=== PATIENT | female | born 1980 | race Caucasian/White ===

== ENCOUNTER → 2016-05-09 | Outpatient (CLI) | payer MEDICARE, MEDICAID ==
[~2016-05-09] MED LIST: ADIPEX-P37.5 MG PO; AMANTADINE HCL100 M1 PO; AMBIEN 10MG10 MG PO; GEODON 20 MG20 MG PO; GEODON 40MG40 MG PO; GEODON60 MG PO; KLONOPIN 0.5MG0.5 MG PO; LEXAPRO 10MG10 MG PO; MACROBID 1100 MG/CAP PO; WELLBUTRIN XL150 MG PO; ZOFRAN 4MG T4 MG/TAB PO; ZOLOFT 50MG50 MG PO; ZYPREXA10 MG PO
== END ==
LOC: BHSO 13:40
DX: F25.0 Schizoaffective disorder, bipolar type (principal)

== ENCOUNTER → 2016-05-30 | Outpatient (CLI) | payer MEDICARE, MEDICAID | LOC: BHSO 13:41 | DX: F20.89 Other schizophrenia (principal) ==

== ENCOUNTER → 2016-07-04 | Outpatient (CLI) | payer MEDICARE, MEDICAID | LOC: BHSO 13:53 | DX: F25.0 Schizoaffective disorder, bipolar type (principal) ==

== ENCOUNTER → 2016-08-01 | Outpatient (CLI) | payer MEDICARE, MEDICAID | LOC: BHSO 11:15 | DX: F25.0 Schizoaffective disorder, bipolar type (principal) ==

== ENCOUNTER → 2016-09-12 | Outpatient (CLI) | payer MEDICARE, MEDICAID | LOC: BHSO 14:40 | DX: F25.0 Schizoaffective disorder, bipolar type (principal) ==

== ENCOUNTER → 2016-10-03 | Outpatient (CLI) | payer MEDICARE, MEDICAID | LOC: BHSO 14:41 | DX: F25.0 Schizoaffective disorder, bipolar type (principal) ==

== ENCOUNTER → 2016-10-21 | Outpatient (CLI) | payer MEDICARE, MEDICAID | LOC: BHSO 13:50 | DX: F25.0 Schizoaffective disorder, bipolar type (principal) ==

== ENCOUNTER → 2016-11-15 | Outpatient (CLI) | payer MEDICARE, MEDICAID | LOC: BHSO 14:38 | DX: F25.0 Schizoaffective disorder, bipolar type (principal) ==

== ENCOUNTER → 2016-12-16 | Outpatient (CLI) | payer MEDICARE, MEDICAID | LOC: BHSO 13:42 | DX: F25.0 Schizoaffective disorder, bipolar type (principal) ==

== ENCOUNTER → 2017-01-18 | Outpatient (CLI) | payer MEDICARE, MEDICAID | LOC: BHSO 14:51 | DX: F25.0 Schizoaffective disorder, bipolar type (principal) ==

== ENCOUNTER → 2017-02-17 | Outpatient (CLI) | payer MEDICARE, MEDICAID | LOC: BHSO 14:50 | DX: F25.0 Schizoaffective disorder, bipolar type (principal) ==

== ENCOUNTER → 2017-03-24 | Outpatient (CLI) | payer MEDICARE, MEDICAID | LOC: BHSO 15:02 | DX: F25.0 Schizoaffective disorder, bipolar type (principal) ==

== ENCOUNTER → 2017-05-19 | Outpatient (CLI) | payer MEDICARE, MEDICAID | LOC: BHSO 15:08 | DX: F25.0 Schizoaffective disorder, bipolar type (principal) | CPT/HCPCS: G0463 ==

== ENCOUNTER → 2017-06-23 | Outpatient (CLI) | payer MEDICARE, MEDICAID | LOC: BHSO 09:46 | DX: F25.0 Schizoaffective disorder, bipolar type (principal) | CPT/HCPCS: G0463 ==

== ENCOUNTER → 2017-08-04 | Outpatient (CLI) | payer MEDICARE, MEDICAID | LOC: BHSO 08:40 | DX: F25.0 Schizoaffective disorder, bipolar type (principal) | CPT/HCPCS: G0463 ==

== ENCOUNTER → 2017-09-19 | Outpatient (CLI) | payer MEDICARE, MEDICAID | LOC: BHSO 15:47 | DX: F25.0 Schizoaffective disorder, bipolar type (principal) | CPT/HCPCS: G0463 ==

== ENCOUNTER → 2017-10-26 | Outpatient (CLI) | payer MEDICARE, MEDICAID | LOC: BHSO 15:11 | DX: F25.0 Schizoaffective disorder, bipolar type (principal) | CPT/HCPCS: G0463 ==

== ENCOUNTER → 2017-11-27 | Outpatient (CLI) | payer MEDICARE, MEDICAID | LOC: BHSO 14:31 | DX: F25.0 Schizoaffective disorder, bipolar type (principal) | CPT/HCPCS: G0463 ==

== ENCOUNTER → 2018-01-25 | Outpatient (CLI) | payer MEDICARE, MEDICAID | LOC: BHSO 15:32 | DX: F25.0 Schizoaffective disorder, bipolar type (principal) | CPT/HCPCS: G0463 ==

== ENCOUNTER → 2018-04-12 | Outpatient (CLI) | payer MEDICARE, MEDICAID | LOC: BHSO 14:29 | DX: F25.0 Schizoaffective disorder, bipolar type (principal) | CPT/HCPCS: G0463 ==

== ENCOUNTER → 2018-05-28 | Outpatient (CLI) | payer MEDICARE, MEDICAID | LOC: BHSO 13:14 | DX: F25.0 Schizoaffective disorder, bipolar type (principal) | CPT/HCPCS: G0463 ==

== ENCOUNTER → 2018-07-09 | Outpatient (CLI) | payer MEDICARE, MEDICAID | LOC: BHSO 13:48 | DX: F25.0 Schizoaffective disorder, bipolar type (principal) | CPT/HCPCS: G0463 ==

== ENCOUNTER 2018-07-25 22:32 | Emergency (ER) | payer MEDICARE, MEDICAID ==
[~2018-07-25] VITALS: Ht 165.1 cm; Wt 95.5 kg
[2018-07-25 22:40] VITALS: TEMP 97.4
[2018-07-25 23:32] LABS: BASO % 0.2 % (0.0-2.0); EOS % 0.2 % (0-4.0); GRAN # 9.4 (1.4-6.5); GRAN % 74.1 % (42.2-75.2); HEMATOCRIT 40.6 % (37.0-47.0); HEMOGLOBIN 13.4 g/dl (12.5-16.0); LYMPH # 2.6 (1.2-3.4); LYMPH % 20.4 % (20.0-51.0); MEAN CELL VOLUME 89 fl (80.0-100.0); MEAN CORPUSCULAR HEMOGLOBIN 30 pg (27.0-31.0); MEAN CORPUSCULAR HGB CONC 33 g/dl (33.0-37.0); MEAN PLATELET VOLUME 9.6 fl (7.4-10.4); MONO # 0.6 (0.1-0.6); MONO % 4.9 % (1.7-9.3); PLATELET COUNT 341 K/mm3 (130-400); RED BLOOD COUNT 4.55 M/mm3 (4.10-5.30); REDCELL DISTRIBUTION WIDTH-CV 13.4 % (11.5-14.5)
[2018-07-25 23:44] LABS: ALANINE AMINOTRANSFERASE 33 U/L (9-52); ALBUMIN 4.5 gm/dL (3.5-5.0); ALKALINE PHOSPHATASE 76 U/L (50-136); ANION GAP 13 mmol/L (7-16); AST,SGOT 32 U/L (15-37); BILIRUBIN,TOTAL 0.8 mg/dL (0.0-1.0); BLOOD UREA NITROGEN 12 mg/dL (7-17); CALCIUM 9.5 mg/dL (8.4-10.2); CARBON DIOXIDE 23 mmol/L (22-30); CHLORIDE 104 mmol/L (98-107); CREATININE, serum 0.94 (0.52-1.25); GLUCOSE 144 mg/dL (74-106); POTASSIUM 3.5 mmol/L (3.4-5.0); SODIUM 139 mmol/L (137-145); TOTAL PROTEIN 7.7 gm/dL (6.4-8.2)
[2018-07-25 23:48] LABS: ACETAMINOPHEN < 10 ug/mL (10-30); ALCOHOL(ethanol),MEDICAL < 10 mg/dL; SALICYLATE < 1.0 mg/dL
[2018-07-26 00:57] LABS: COLLECTION METHOD CLEAN CATCH
[2018-07-26 01:02] LABS: MUCOUS Present /lpf; PH 5 (5-8); URINE APPEARANCE Hazy; URINE BACTERIA None Seen /hpf; URINE BILIRUBIN Negative (NEGATIVE); URINE BLOOD Negative (NEGATIVE); URINE CALCIUM OXALATE CRYSTAL Present /hpf; URINE COLOR Yellow; URINE GLUCOSE Negative (NEGATIVE); URINE KETONE Trace (NEGATIVE); URINE LEUKOCYTE ESTERASE Trace (NEGATIVE); URINE NITRATE Negative (NEGATIVE); URINE PROTEIN(semi-quant) Negative (NEGATIVE)
[2018-07-26 01:11] LABS: TRICYCLIC ANTIDEPRESS URINE NEGATIVE
[2018-07-26] MEDS ORDERED: FLEXERIL 1010 MG/TAB PO (02:28)
[2018-07-26] MEDS ORDERED: AMBIEN 5MG TABLE5 MG PO (04:55)
[2018-07-26] MEDS ORDERED: MINIPRESS2 MG PO (04:56)
[2018-07-26] MEDS ORDERED: PROZAC 10MG10 MG PO (04:59)
[2018-07-26] MEDS ORDERED: GEODON80 MG PO (05:00)
[2018-07-26] MEDS ORDERED: KLONOPIN 0.5MG0.5 MG PO (05:00)
[2018-07-26 11:00] VITALS: BP 130/74; PULSE 96
== END 2018-07-26 11:35 ==
LOC: COL.ER 22:32
PROVIDERS: Emergency Medicine
DX: F20.2 Catatonic schizophrenia (principal); F17.210 Nicotine dependence, cigarettes, uncomplicated

== ENCOUNTER → 2018-08-28 | Outpatient (CLI) | payer MEDICARE, MEDICAID ==
[~2018-08-28] MED LIST changes: +AMBIEN 5MG TABLE5 MG PO; +FLEXERIL 1010 MG/TAB PO; +GEODON80 MG PO; +MINIPRESS2 MG PO; +PROZAC 10MG10 MG PO
== END ==
LOC: BHSO 14:04
DX: F25.0 Schizoaffective disorder, bipolar type (principal)
CPT/HCPCS: G0463

== ENCOUNTER → 2018-09-14 | Outpatient (CLI) | payer MEDICARE, MEDICAID | LOC: BHSO 15:01 | DX: F25.0 Schizoaffective disorder, bipolar type (principal) ==

== ENCOUNTER → 2018-09-27 | Outpatient (CLI) | payer MEDICARE, MEDICAID | LOC: BHSO 14:57 | DX: F25.0 Schizoaffective disorder, bipolar type (principal) | CPT/HCPCS: G0463 ==

== ENCOUNTER → 2018-10-12 | Outpatient (CLI) | payer MEDICARE, MEDICAID | LOC: BHSO 14:52 | DX: F25.0 Schizoaffective disorder, bipolar type (principal) ==

== ENCOUNTER → 2018-11-09 | Outpatient (CLI) | payer MEDICARE, MEDICAID | LOC: BHSO 14:53 | DX: F25.0 Schizoaffective disorder, bipolar type (principal) ==

== ENCOUNTER → 2018-12-07 | Outpatient (CLI) | payer MEDICARE, MEDICAID | LOC: BHSO 14:56 | DX: F25.0 Schizoaffective disorder, bipolar type (principal) ==

== ENCOUNTER → 2019-01-04 | Outpatient (CLI) | payer MEDICARE, MEDICAID | LOC: BHSO 14:52 | DX: F25.0 Schizoaffective disorder, bipolar type (principal) ==

== ENCOUNTER → 2019-01-15 | Outpatient (CLI) | payer MEDICARE, MEDICAID | LOC: BHSO 15:08 | DX: F25.0 Schizoaffective disorder, bipolar type (principal) | CPT/HCPCS: G0463 ==

== ENCOUNTER → 2019-02-01 | Outpatient (CLI) | payer MEDICARE, MEDICAID | LOC: BHSO 14:54 | DX: F25.0 Schizoaffective disorder, bipolar type (principal) ==

== ENCOUNTER → 2019-03-01 | Outpatient (CLI) | payer MEDICARE, MEDICAID | LOC: BHSO 14:50 | DX: F25.0 Schizoaffective disorder, bipolar type (principal) ==

== ENCOUNTER → 2019-03-14 | Outpatient (CLI) | payer MEDICARE, MEDICAID | LOC: BHSO 14:59 | DX: F25.0 Schizoaffective disorder, bipolar type (principal) | CPT/HCPCS: G0463 ==

== ENCOUNTER → 2019-03-29 | Outpatient (CLI) | payer MEDICARE, MEDICAID | LOC: BHSO 14:52 | DX: F25.0 Schizoaffective disorder, bipolar type (principal) ==

== ENCOUNTER → 2019-04-26 | Outpatient (CLI) | payer MEDICARE, MEDICAID | LOC: BHSO 14:48 | DX: F25.0 Schizoaffective disorder, bipolar type (principal) ==

== ENCOUNTER → 2019-05-15 | Outpatient (CLI) | payer MEDICARE, MEDICAID | LOC: BHSO 14:04 | DX: F25.0 Schizoaffective disorder, bipolar type (principal) | CPT/HCPCS: G0463 ==

== ENCOUNTER → 2019-05-24 | Outpatient (CLI) | payer MEDICARE, MEDICAID | LOC: BHSO 14:43 | DX: F25.0 Schizoaffective disorder, bipolar type (principal) ==

== ENCOUNTER → 2019-06-21 | Outpatient (CLI) | payer MEDICARE, MEDICAID | LOC: BHSO 14:54 | DX: F25.0 Schizoaffective disorder, bipolar type (principal) ==

== ENCOUNTER → 2019-08-16 | Outpatient (CLI) | payer MEDICARE, MEDICAID | LOC: BHSO 14:57 | DX: F25.8 Other schizoaffective disorders (principal) ==

== ENCOUNTER → 2019-09-13 | Outpatient (CLI) | payer MEDICARE, MEDICAID | LOC: BHSO 14:50 | DX: F41.1 Generalized anxiety disorder (principal) ==

== ENCOUNTER → 2019-10-11 | Outpatient (CLI) | payer MEDICARE, MEDICAID | LOC: BHSO 14:50 | DX: F25.0 Schizoaffective disorder, bipolar type (principal) ==

== ENCOUNTER → 2019-11-19 | Outpatient (CLI) | payer MEDICARE, MEDICAID | LOC: BHSO 15:28 | DX: F25.8 Other schizoaffective disorders (principal) | CPT/HCPCS: G0463 ==

== ENCOUNTER → 2019-12-06 | Outpatient (CLI) | payer MEDICARE, MEDICAID | LOC: BHSO 14:52 | DX: F25.8 Other schizoaffective disorders (principal) ==

== ENCOUNTER → 2020-01-03 | Outpatient (CLI) | payer MEDICARE, MEDICAID | LOC: BHSO 14:47 | DX: F25.0 Schizoaffective disorder, bipolar type (principal) ==

== ENCOUNTER → 2020-01-31 | Outpatient (CLI) | payer MEDICARE, MEDICAID | LOC: BHSO 15:00 | DX: F25.0 Schizoaffective disorder, bipolar type (principal) ==

== ENCOUNTER → 2020-02-28 | Outpatient (CLI) | payer MEDICARE, MEDICAID | LOC: BHSO 11:14 | DX: F25.8 Other schizoaffective disorders (principal) | CPT/HCPCS: G0463 ==

== ENCOUNTER 2021-01-17 09:56 | Emergency (ER) | payer MEDICARE, MEDICAID ==
[~2021-01-17] VITALS: Ht 167.6 cm; Wt 68.2 kg
[2021-01-17 10:06] VITALS: TEMP 98.7
[2021-01-17 11:38] LABS: BASO # 0.1 (0.0-0.2); BASO % 0.3 % (0.0-2.0); EOS # 0.1 (0.0-0.7); EOS % 0.3 % (0-4.0); GRAN # 10.1 (1.4-6.5); GRAN % 68.2 % (42.2-75.2); HEMATOCRIT 40.7 % (37.0-47.0); HEMOGLOBIN 13.4 g/dl (12.5-16.0); LYMPH # 3.7 (1.2-3.4); MEAN CELL VOLUME 90 fl (80.0-100.0); MEAN CORPUSCULAR HEMOGLOBIN 30 pg (27.0-31.0); MEAN CORPUSCULAR HGB CONC 33 g/dl (33.0-37.0); MEAN PLATELET VOLUME 10.2 fl (7.4-10.4); MONO # 0.9 (0.1-0.6); MONO % 5.9 % (1.7-9.3); PLATELET COUNT 340 K/mm3 (130-400); RED BLOOD COUNT 4.51 M/mm3 (4.10-5.30); REDCELL DISTRIBUTION WIDTH-CV 13.2 % (11.5-14.5)
[2021-01-17 12:04] LABS: ALANINE AMINOTRANSFERASE 25 U/L (0-55); ALBUMIN 4.5 gm/dL (3.5-5.0); ALKALINE PHOSPHATASE 69 U/L (0-750); ANION GAP 13 mmol/L; AST,SGOT 29 U/L (5-34); BILIRUBIN,TOTAL 1.1 mg/dL (0.2-1.2); BLOOD UREA NITROGEN 12 mg/dL (7-19); CALCIUM 9.5 mg/dL (8.4-10.2); CARBON DIOXIDE 21 mEq/L (22-29); CHLORIDE 106 mmol/L (98-107); CREATININE, serum 1.19 mg/dL (0.57-1.11); GLUCOSE 112 mg/dL (70-99); POTASSIUM 3.5 mmol/L (3.5-4.5); SODIUM 140 mmol/L (136-145); TOTAL PROTEIN 7.8 gm/dL (6.2-8.1)
[2021-01-17 12:05] LABS: ACETAMINOPHEN < 1.0 ug/mL (10-30); ALCOHOL(ethanol),MEDICAL < 10 mg/dL (0-10); SALICYLATE < 5.0 mg/dL (15.0-30.0)
[2021-01-17 12:07] LABS: COLLECTION METHOD CLEAN CATCH
[2021-01-17 12:22] LABS: MUCOUS Present /lpf; PH 5 (5-8); SQUAMOUS EPITHELIAL 0-2 /hpf; URINE APPEARANCE Cloudy; URINE BACTERIA None Seen /hpf; URINE BILIRUBIN Negative (NEGATIVE); URINE BLOOD Negative (NEGATIVE); URINE COLOR Yellow; URINE GLUCOSE Negative (NEGATIVE); URINE KETONE Trace (NEGATIVE); URINE LEUKOCYTE ESTERASE Trace (NEGATIVE); URINE NITRATE Negative (NEGATIVE); URINE PROTEIN(semi-quant) Negative (NEGATIVE); URINE UROBILINOGEN Negative (NEGATIVE)
[2021-01-17 12:26] LABS: TSH w REFLEX 1.233 uIU/mL (0.350-4.940)
[2021-01-17 12:28] LABS: TRICYCLIC ANTIDEPRESS URINE NEGATIVE
[2021-01-18 08:13] VITALS: BP 120/57
[2021-01-18 09:40] VITALS: PULSE 99
== END 2021-01-18 09:40 ==
LOC: COL.ER 09:56
PROVIDERS: Nurse Practitioner
DX: F20.9 Schizophrenia, unspecified (principal); F31.9 Bipolar disorder, unspecified; F41.9 Anxiety disorder, unspecified; F43.10 Post-traumatic stress disorder, unspecified; Z79.899 Other long term (current) drug therapy; Z20.822 Contact with and (suspected) exposure to COVID-19

== ENCOUNTER 2021-03-11 17:20 | Emergency (ER) | payer MEDICARE, MEDICAID ==
[~2021-03-11] VITALS: Ht 167.6 cm; Wt 81.8 kg
[2021-03-11 18:06] LABS: COLLECTION METHOD CLEAN CATCH
[2021-03-11 18:18] LABS: BUDDING YEAST Present (NOT PRESENT); MUCOUS Present (NOT PRESENT); PH 5 (5-8); URINE APPEARANCE Turbid (CLEAR/HAZY); URINE BACTERIA Rare (NONE SEEN); URINE BILIRUBIN Positive (NEGATIVE); URINE BLOOD 1+ (NEGATIVE); URINE COLOR Yellow (YELLOW); URINE GLUCOSE Negative (NEGATIVE); URINE KETONE Trace (NEGATIVE); URINE LEUKOCYTE ESTERASE Negative (NEGATIVE); URINE NITRATE Negative (NEGATIVE); URINE PROTEIN(semi-quant) 2+ (NEGATIVE)
[2021-03-11 18:25] LABS: TRICYCLIC ANTIDEPRESS URINE NEGATIVE
[2021-03-11 18:26] LABS: BASO % 0.2 % (0.0-2.0); EOS % 0.2 % (0-4.0); GRAN # 9.7 K/mm3 (1.4-6.5); GRAN % 70.8 % (42.2-75.2); HEMATOCRIT 42.4 % (37.0-47.0); HEMOGLOBIN 14.2 g/dl (12.5-16.0); LYMPH # 3.2 K/mm3 (1.2-3.4); LYMPH % 23.7 % (20.0-51.0); MEAN CELL VOLUME 91 fl (80.0-100.0); MEAN CORPUSCULAR HEMOGLOBIN 30 pg (27.0-31.0); MEAN CORPUSCULAR HGB CONC 34 g/dl (33.0-37.0); MEAN PLATELET VOLUME 10.5 fl (7.4-10.4); MONO # 0.7 K/mm3 (0.1-0.6); PLATELET COUNT 327 K/mm3 (130-400); RED BLOOD COUNT 4.67 M/mm3 (4.10-5.30); REDCELL DISTRIBUTION WIDTH-CV 13.1 % (11.5-14.5)
[2021-03-11 18:41] LABS: ALANINE AMINOTRANSFERASE 22 U/L (0-55); ALBUMIN 4.6 gm/dL (3.5-5.0); ALKALINE PHOSPHATASE 60 U/L (40-150); ANION GAP 13 mmol/L (7-16); AST,SGOT 22 U/L (5-34); BLOOD UREA NITROGEN 16 mg/dL (7-19); CALCIUM 9.9 mg/dL (8.4-10.2); CARBON DIOXIDE 19 mmol/L (22-29); CHLORIDE 111 mmol/L (98-107); CREATININE, serum 1.03 mg/dL (0.57-1.11); GLUCOSE 109 mg/dL (70-99); POTASSIUM 4.1 mmol/L (3.5-4.5); SODIUM 143 mmol/L (136-145)
[2021-03-11 18:48] LABS: ACETAMINOPHEN < 1.0 ug/mL (10-30); ALCOHOL(ethanol),MEDICAL < 10 mg/dL (0-10); SALICYLATE < 5.0 mg/dL (15.0-30.0)
[2021-03-14 12:30] VITALS: BP 120/61; PULSE 80; TEMP 98.2
== END 2021-03-14 12:35 ==
LOC: COL.ER 17:20
PROVIDERS: Physician Assistant
DX: F20.9 Schizophrenia, unspecified (principal); D72.829 Elevated white blood cell count, unspecified; R94.4 Abnormal results of kidney function studies; F32.A Depression, unspecified; Z20.822 Contact with and (suspected) exposure to COVID-19; Z88.8 Allergy status to other drugs, medicaments and biological substances; Z79.899 Other long term (current) drug therapy
CPT/HCPCS: J1200; J1630; J3486; J7030

== ENCOUNTER 2022-06-17 13:44 | Emergency (ER) | payer MEDICARE, MEDICAID ==
[~2022-06-17] VITALS: Ht 167.6 cm; Wt 95.5 kg
[2022-06-17 14:50] LABS: BASO % 0.3 % (0.0-2.0); EOS # 0.1 K/mm3 (0.0-0.7); EOS % 0.7 % (0.0-4.0); GRAN # 8.5 K/mm3 (1.4-6.5); GRAN % 63.6 % (42.2-75.2); HEMATOCRIT 40.6 % (37.0-47.0); HEMOGLOBIN 13.6 g/dl (12.5-16.0); LYMPH # 3.9 K/mm3 (1.2-3.4); LYMPH % 29.1 % (20.0-51.0); MEAN CELL VOLUME 89 fl (80.0-100.0); MEAN CORPUSCULAR HEMOGLOBIN 30 pg (27-31); MEAN CORPUSCULAR HGB CONC 34 g/dl (33.0-37.0); MEAN PLATELET VOLUME 9.6 fl (7.4-10.4); MONO # 0.8 K/mm3 (0.1-0.6); PLATELET COUNT 315 K/mm3 (130-400); RED BLOOD COUNT 4.59 M/mm3 (4.10-5.30); REDCELL DISTRIBUTION WIDTH-CV 13.2 % (11.5-14.5)
[2022-06-17 15:07] LABS: ALANINE AMINOTRANSFERASE 30 U/L (0-55); ALBUMIN 4.3 gm/dL (3.5-5.0); ALKALINE PHOSPHATASE 66 U/L (40-150); ANION GAP 13 mmol/L (7-16); AST,SGOT 22 U/L (5-34); BILIRUBIN,TOTAL 0.7 mg/dL (0.2-1.2); BLOOD UREA NITROGEN 17 mg/dL (7-19); CALCIUM 9.6 mg/dL (8.4-10.2); CARBON DIOXIDE 21 mmol/L (22-29); CHLORIDE 110 mmol/L (98-107); CREATININE, serum 1.01 mg/dL (0.57-1.11); GLUCOSE 113 mg/dL (70-99); POTASSIUM 3.4 mmol/L (3.5-4.5); SODIUM 144 mmol/L (136-145); TOTAL PROTEIN 7.5 gm/dL (6.2-8.1)
[2022-06-17 15:12] LABS: ACETAMINOPHEN < 1.0 ug/mL (10-30); ALCOHOL(ethanol),MEDICAL < 10 mg/dL (0-10); SALICYLATE < 5.0 mg/dL (15.0-30.0)
[2022-06-17 15:26] LABS: TSH w REFLEX 1.323 uIU/mL (0.350-4.940)
[2022-06-17 17:50] LABS: COLLECTION METHOD CLEAN CATCH
[2022-06-17 18:00] LABS: MUCOUS Present (NOT PRESENT); URINE APPEARANCE Cloudy (CLEAR/HAZY); URINE BACTERIA None Seen /hpf (NONE SEEN); URINE COLOR Yellow (YELLOW); URINE GLUCOSE Negative (NEGATIVE); URINE KETONE 2+ (NEGATIVE); URINE PROTEIN(semi-quant) TRACE (NEGATIVE)
[2022-06-17 18:01] LABS: URINE BLOOD TRACE-INTACT (NEGATIVE); URINE NITRATE Negative (NEGATIVE); URINE UROBILINOGEN 0.2 (NEGATIVE)
[2022-06-17] MEDS ORDERED: TOPAMAX50 MG PO (18:04)
[2022-06-17] MEDS ORDERED: ATARAX 25MG25 MG/TAB PO (18:06)
[2022-06-17] MEDS ORDERED: INVEGA SUSTENN117 MG IM (18:08)
[2022-06-17 18:10] LABS: TRICYCLIC ANTIDEPRESS URINE NEGATIVE
[2022-06-18 06:24] VITALS: BP 139/91; PULSE 104; TEMP 97.4
== END 2022-06-18 06:26 ==
LOC: COL.ER 13:44
PROVIDERS: Physician Assistant
DX: F25.0 Schizoaffective disorder, bipolar type (principal); D72.829 Elevated white blood cell count, unspecified; F17.200 Nicotine dependence, unspecified, uncomplicated; Z20.822 Contact with and (suspected) exposure to COVID-19

== ENCOUNTER 2022-07-20 14:15 | Outpatient (RCR) | payer MEDICARE, MEDICAID ==
[~2022-07-20 14:15] MED LIST changes: +ATARAX 25MG25 MG/TAB PO; +INVEGA SUSTENN117 MG IM; +TOPAMAX50 MG PO
== END 2022-07-22 | disposition home or self-care (01) ==
LOC: WSPT
DX: M16.0 Bilateral primary osteoarthritis of hip (principal)

== ENCOUNTER 2022-08-17 14:15 | Outpatient (RCR) | payer MEDICARE, MEDICAID | END 2022-08-21 | disposition home or self-care (01) | LOC: WSPT | DX: M16.0 Bilateral primary osteoarthritis of hip (principal) ==